=== PATIENT | female | born 1970 | race African-American/Black ===

== ENCOUNTER 2019-06-18 10:12 | Emergency (ER) | payer BC, OTHER ==
[~2019-06-18] VITALS: Ht 152.4 cm; Wt 60.0 kg
[~2019-06-18 10:12] MED LIST: ALBU2TAB44; ESOM20CA
[2019-06-18] MEDS ORDERED: IPRATROPIUM BROMIDE (0.02%) 0.5MG/2.5ML NEB HHN STA (11:01)
[2019-06-18] MEDS ORDERED: ALBUTEROL (0.083%) 2.5MG/3ML NEB HHN STA (11:01)
[2019-06-18] MEDS ORDERED: SODIUM CHLORIDE 0.9% 1,000 ML IV ONE (11:01)
[2019-06-18] MEDS ORDERED: METHYLPREDNISOLONE SOD SUCC 125 MG/2 ML VIAL IV STA (11:01)
[2019-06-18 12:05] LABS: HEMATOCRIT. 38.6 % (36.0-48.0); HEMOGLOBIN. 12.9 g/dL (12.0-16.0); MEAN CORPUSCULAR HEMOGLOBIN 26.3 pg (28.0-32.0); MEAN CORPUSCULAR VOLUME 78.7 fL (81.0-99.0); PLATELET 290 x1000/uL (130-400); RED CELL DISTRIBUTION WIDTH 16.4 % (11.6-14.6)
[2019-06-18 12:12] LABS: CHLORIDE 108 mEq/L (98-107)
[2019-06-18 12:15] LABS: HCG SCREEN NEGATIVE
[2019-06-18 12:24] LABS: PLATELET ESTIMATE NORMAL
[2019-06-18 14:25] LABS: CLARITY URINE CLEAR (CLEAR); COLOR URINE YELLOW (YELLOW); KETONES URINE TRACE (NEGATIVE); LEUKOCYTE ESTERASE URINE NEGATIVE (NEGATIVE); NITRITE URINE NEGATIVE (NEGATIVE); OCCULT BLOOD URINE TRACE (NEGATIVE); PROTEIN URINE NEGATIVE (NEGATIVE); SPECIFIC GRAVITY URINE 1.016 (1.005-1.030); UROBILINOGEN URINE 0.2 E.U./dL (0.2-1.0)
[2019-06-18 14:45] VITALS: BP 130/71
== END 2019-06-18 15:25 | disposition home or self-care (01) ==
LOC: ER 10:12
DX: J45.901 Unspecified asthma with (acute) exacerbation (principal); J02.8 Acute pharyngitis due to other specified organisms; B97.89 Other viral agents as the cause of diseases classified elsewhere; K21.9 Gastro-esophageal reflux disease without esophagitis; Z88.6 Allergy status to analgesic agent; Z88.0 Allergy status to penicillin
CPT/HCPCS: 36415; 71045; 80053; 81003; 84703; 85025; 87070; 87430; 93005; 94644; 96374; 99285; J2930; J7030; J7611; Z7610

== ENCOUNTER 2019-10-17 04:17 | Inpatient (IN) | payer BC ==
[~2019-10-17] VITALS: Ht 152.4 cm; Wt 64.9 kg
[2019-10-17] MEDS ORDERED: IPRATROPIUM BROMIDE (0.02%) 0.5MG/2.5ML NEB HHN STA ×2 (05:12→06:40)
[2019-10-17] MEDS ORDERED: ALBUTEROL (0.083%) 2.5MG/3ML NEB HHN STA ×2 (05:12→06:40)
[2019-10-17] MEDS ORDERED: SODIUM CHLORIDE 0.9% 1,000 ML IV ONE (06:40)
[2019-10-17] MEDS ORDERED: METHYLPREDNISOLONE SOD SUCC 125 MG/2 ML VIAL IV STA (06:40)
[2019-10-17 07:16] LABS: HEMATOCRIT. 35.1 % (36.0-48.0); HEMOGLOBIN. 11.7 g/dL (12.0-16.0); MEAN CORPUSCULAR HEMOGLOBIN 26.2 pg (28.0-32.0); MEAN CORPUSCULAR VOLUME 78.8 fL (81.0-99.0); MEAN PLATELET VOLUME 8.3 fl (7.4-10.4); PLATELET 242 x1000/uL (130-400); RED BLOOD CELL COUNT 4.46 mill/uL (4.2-5.4); RED CELL DISTRIBUTION WIDTH 16.4 % (11.6-14.6)
[2019-10-17 07:25] LABS: CHLORIDE 110 mEq/L (98-107)
[2019-10-17 07:45] LABS: PLATELET ESTIMATE NORMAL
[2019-10-17] MEDS ORDERED: ALBUTEROL (0.083%) 2.5MG/3ML NEB ONE (08:16)
[2019-10-17] MEDS ORDERED: MAGNESIUM 2 G PREMIX 50 ML IV ONE (09:15)
[2019-10-17] MEDS ORDERED: DIPHENHYDRAMINE 50MG/ML VIAL IV PRN (11:00)
[2019-10-17] MEDS ORDERED: MORPHINE SULFATE 2 MG/ML CPJ (NOT FOR IM USE) IV PRN (11:00)
[2019-10-17] MEDS ORDERED: LORAZEPAM 2MG/ML CPJ IV PRN (11:00)
[2019-10-17] MEDS ORDERED: MAGNESIUM/ALUMINUM HYDROXIDE/SIMETHICONE 30ML UDC PO PRN (11:00)
[2019-10-17] MEDS ORDERED: IPRATROPIUM/ALBUTEROL 0.5-3(2.5)MG/3ML NEB HHN PRN (11:00)
[2019-10-17] MEDS ORDERED: GUAIFENESIN 200MG/10ML SUGAR FREE UDC PO PRN (11:00)
[2019-10-17] MEDS ORDERED: ONDANSETRON HCL 4MG/2ML INJ IV PRN (11:00)
[2019-10-17] MEDS ORDERED: NA PHOS,M-B/NA PHOS,DI-BA ENEMA 118ML PR PRN (11:00)
[2019-10-17] MEDS ORDERED: CLONIDINE 0.1MG TABLET PO PRN (11:00)
[2019-10-17] MEDS ORDERED: HYDROCODONE/ACETAMINOPHEN 5/325MG TABLET PO PRN (11:00)
[2019-10-17] MEDS ORDERED: DOCUSATE SODIUM 100MG CAPSULE PO PRN (11:00)
[2019-10-17] MEDS: ENOXAPARIN 40MG/0.4ML SYR SUBCUT SCH (17:00)
[2019-10-17] MEDS: MONTELUKAST SODIUM 10MG TABLET PO SCH (17:41)
[2019-10-17] MEDS: LORATADINE 10MG TABLET PO SCH (17:41)
[2019-10-17] MEDS: METHYLPREDNISOLONE SOD SUCC 125 MG/2 ML VIAL IV SCH ×2 (17:41→23:18)
[2019-10-17] MEDS ORDERED: LEVOFLOXACIN 500MG PREMIX 100 ML IV SCH (18:00)
[2019-10-17 20:00] VITALS: BP_SYST 125; BP_SYST 127; BP_DIAS 70; BP_DIAS 73
[2019-10-17 20:29] VITALS: BP 121/64
[2019-10-17] MEDS: FLUTICASONE PROPIONATE 50MCG/SPRAY BOTTLE BOTHNSTRLS SCH (21:06)
[2019-10-17] MEDS: FAMOTIDINE 20MG/2ML VIAL IV SCH (21:13)
[2019-10-17] MEDS: IPRATROPIUM/ALBUTEROL 0.5-3(2.5)MG/3ML NEB HHN SCH (21:17)
[2019-10-18] VITALS: BP_SYST 125; BP_SYST 127; BP_DIAS 70; BP_DIAS 73
[2019-10-18] MEDS: IPRATROPIUM/ALBUTEROL 0.5-3(2.5)MG/3ML NEB HHN SCH ×6 (01:06→20:29)
[2019-10-18 04:00] VITALS: BP 102/58
[2019-10-18] MEDS: METHYLPREDNISOLONE SOD SUCC 125 MG/2 ML VIAL IV SCH ×3 (05:48→17:40)
[2019-10-18 07:01] LABS: HEMATOCRIT. 33.8 % (36.0-48.0); HEMOGLOBIN. 11.3 g/dL (12.0-16.0); MEAN CORPUSCULAR HEMOGLOBIN 26.1 pg (28.0-32.0); MEAN CORPUSCULAR VOLUME 78.1 fL (81.0-99.0); MEAN PLATELET VOLUME 8.4 fl (7.4-10.4); PLATELET 285 x1000/uL (130-400); RED BLOOD CELL COUNT 4.33 mill/uL (4.2-5.4); RED CELL DISTRIBUTION WIDTH 16.7 % (11.6-14.6)
[2019-10-18 07:20] LABS: CHLORIDE 110 mEq/L (98-107)
[2019-10-18 07:29] LABS: HDL CHOLESTEROL 102 mg/dL (40-59); LDL CHOLESTEROL 85 mg/dL (5-100)
[2019-10-18 07:37] LABS: T4 FREE 0.85 ng/dL (0.76-1.46)
[2019-10-18 08:00] VITALS: BP 100/40
[2019-10-18] MEDS: FAMOTIDINE 20MG/2ML VIAL IV SCH ×2 (08:02→20:17)
[2019-10-18] MEDS: FLUTICASONE PROPIONATE 50MCG/SPRAY BOTTLE BOTHNSTRLS SCH ×2 (08:02→20:17)
[2019-10-18] MEDS: LORATADINE 10MG TABLET PO SCH (08:02)
[2019-10-18 12:00] VITALS: BP 126/72
[2019-10-18 13:26] LABS: PLATELET ESTIMATE NORMAL
[2019-10-18 16:00] VITALS: BP 111/64
[2019-10-18] MEDS: ENOXAPARIN 40MG/0.4ML SYR SUBCUT SCH (17:00)
[2019-10-18] MEDS: MONTELUKAST SODIUM 10MG TABLET PO SCH (17:40)
[2019-10-18 19:34] LABS: CLARITY URINE CLEAR (CLEAR); COLOR URINE YELLOW (YELLOW); KETONES URINE NEGATIVE (NEGATIVE); LEUKOCYTE ESTERASE URINE NEGATIVE (NEGATIVE); NITRITE URINE NEGATIVE (NEGATIVE); OCCULT BLOOD URINE NEGATIVE (NEGATIVE); PROTEIN URINE NEGATIVE (NEGATIVE); SPECIFIC GRAVITY URINE 1.012 (1.005-1.030); UROBILINOGEN URINE 0.2 E.U./dL (0.2-1.0)
[2019-10-18 19:45] LABS: *AMPHETAMINES SCREEN URINE NEGATIVE (NEGATIVE); *BARBITURATES SCREEN URINE NEGATIVE (NEGATIVE); *BENZODIAZEPINES SCREEN URINE NEGATIVE (NEGATIVE); *COCAINE SCREEN URINE NEGATIVE (NEGATIVE)
[2019-10-18 19:46] LABS: CANNABINOID URINE SCREEN NEGATIVE (NEGATIVE); METHADONE URINE SCREEN NEGATIVE (NEGATIVE); OPIATES URINE SCREEN NEGATIVE (NEGATIVE); PHENCYCLIDINE URINE SCREEN NEGATIVE (NEGATIVE)
[2019-10-18 20:00] VITALS: BP 119/77
[2019-10-18] MEDS ORDERED: LEVOFLOXACIN 500MG PREMIX 100 ML IV SCH (20:00)
[2019-10-19] VITALS: BP 125/72
[2019-10-19] MEDS: METHYLPREDNISOLONE SOD SUCC 125 MG/2 ML VIAL IV SCH ×3 (00:12→11:56)
[2019-10-19] MEDS: IPRATROPIUM/ALBUTEROL 0.5-3(2.5)MG/3ML NEB HHN SCH ×4 (00:36→12:18)
[2019-10-19 04:00] VITALS: BP 100/54
[2019-10-19 07:56] LABS: HEMATOCRIT. 33.3 % (36.0-48.0); MEAN CORPUSCULAR HEMOGLOBIN 25.8 pg (28.0-32.0); MEAN CORPUSCULAR VOLUME 78.1 fL (81.0-99.0); MEAN PLATELET VOLUME 8.5 fl (7.4-10.4); PLATELET 281 x1000/uL (130-400); RED BLOOD CELL COUNT 4.26 mill/uL (4.2-5.4); RED CELL DISTRIBUTION WIDTH 16.3 % (11.6-14.6)
[2019-10-19 08:00] VITALS: BP 103/54
[2019-10-19 08:04] LABS: CHLORIDE 110 mEq/L (98-107)
[2019-10-19] MEDS: LORATADINE 10MG TABLET PO SCH (09:11)
[2019-10-19] MEDS: FLUTICASONE PROPIONATE 50MCG/SPRAY BOTTLE BOTHNSTRLS SCH (09:12)
[2019-10-19] MEDS: FAMOTIDINE 20MG/2ML VIAL IV SCH (09:12)
[2019-10-19] MEDS ORDERED: LEVO750T21 MT (13:18)
[2019-10-19 13:19] VITALS: BP 106/65
[2019-10-19 14:13] LABS: PLATELET ESTIMATE NORMAL
== END 2019-10-19 13:56 | disposition home or self-care (01) | DRG 189 ==
LOC: ER 04:17 → EEVIPCON 09:05 → 7WST 09:05 → ENRESERV 14:39
PROVIDERS: ADMIT Internal Medicine; ATTEND Internal Medicine
DX: J96.00 Acute respiratory failure, unspecified whether with hypoxia or hypercapnia (principal); J45.901 Unspecified asthma with (acute) exacerbation; R65.10 Systemic inflammatory response syndrome (SIRS) of non-infectious origin without acute organ dysfunction; K21.9 Gastro-esophageal reflux disease without esophagitis; I10 Essential (primary) hypertension; D72.825 Bandemia; R73.9 Hyperglycemia, unspecified; Z79.899 Other long term (current) drug therapy; Z88.0 Allergy status to penicillin; Z88.1 Allergy status to other antibiotic agents
CPT/HCPCS: 36415; 71045; 80048; 80061; 80305; 81003; 81025; 84439; 84443; 84484; 93005; 94640; 96361; 96374; 99285; J1956; J2930; J3490; J7030; J7611; J7620

== ENCOUNTER 2020-01-20 23:29 | Emergency (ER) | payer BC ==
[~2020-01-20] VITALS: Ht 152.4 cm; Wt 61.0 kg
[~2020-01-20 23:29] MED LIST changes: +LEVO750T21 MT
[2020-01-21 01:38] LABS: BASOPHILS % 0.9 % (0.0-2.0); EOSINOPHILS % 0.1 % (0.0-5.0); HEMATOCRIT. 39.5 % (36.0-48.0); HEMOGLOBIN. 13.1 g/dL (12.0-16.0); LYMPHOCYTES % 36.7 % (20.0-50.0); MEAN CORPUSCULAR HEMOGLOBIN 26.6 pg (28.0-32.0); MEAN CORPUSCULAR VOLUME 79.8 fL (81.0-99.0); MEAN PLATELET VOLUME 8.5 fl (7.4-10.4); MONOCYTES % 8.3 % (2.0-8.0); PLATELET 295 x1000/uL (130-400); RED BLOOD CELL COUNT 4.95 mill/uL (4.2-5.4); RED CELL DISTRIBUTION WIDTH 16.1 % (11.6-14.6)
[2020-01-21 01:46] LABS: CHLORIDE 107 mEq/L (98-107)
[2020-01-21 02:51] VITALS: BP 116/68
== END 2020-01-21 02:54 | disposition home or self-care (01) ==
LOC: EEVIPCON 23:29 → ER 23:29
DX: J06.9 Acute upper respiratory infection, unspecified (principal); J45.909 Unspecified asthma, uncomplicated; K21.9 Gastro-esophageal reflux disease without esophagitis; Z88.6 Allergy status to analgesic agent; Z88.0 Allergy status to penicillin; Z88.3 Allergy status to other anti-infective agents; Z98.890 Other specified postprocedural states
CPT/HCPCS: 36415; 71045; 80053; 83880; 84484; 85025; 87430; 87804; 93005; 99285